=== PATIENT | male | born 1975 | race Caucasian/White ===

== ENCOUNTER 2019-09-29 13:04 | Outpatient (CLI) | payer MEDICARE, MEDICAID, SELFPAY | END 2019-09-29 13:05 | disposition home or self-care (01) | DX: H90.3 Sensorineural hearing loss, bilateral (principal) | CPT/HCPCS: 92557; 92567 ==

== ENCOUNTER 2022-11-17 12:33 | Outpatient (CLI) | payer MEDICARE, MEDICAID, SELFPAY | END 2022-11-17 12:34 | disposition home or self-care (01) | LOC: ANHBWCAUD 12:35 | PROVIDERS: Visit Provider Family Medicine | DX: H90.3 Sensorineural hearing loss, bilateral (principal) | CPT/HCPCS: 92557; 92567 ==